=== PATIENT | female | born 1960 | race Caucasian/White ===

== ENCOUNTER 2018-07-16 07:25 | Inpatient (IN) ==
[2018-07-16] MEDS ORDERED: ANCEF 1 GRAM IV PREMIX* 2 G/100 ML BAG IV ONE (07:40)
[2018-07-16] MEDS ORDERED: D5 LR 1000 ML 1,000 ML IV ONE (07:40)
[2018-07-16 07:56] VITALS: BMI 38.3
[2018-07-16] MEDS ORDERED: FENTANYL INJ 100 mcg ONE (08:18)
[2018-07-16] MEDS ORDERED: DILAUDID INJ ONE ×4 (08:18→11:28)
[2018-07-16] MEDS ORDERED: BACITRACIN IR ONE ×2 (08:30)
[2018-07-16] MEDS ORDERED: NS IRRIGATION IR ONE ×2 (08:30)
[2018-07-16] MEDS ORDERED: NS IRRIGATION 1000 ML 1,000 ML with BACITRACIN VIAL 50,000 UNIT IR ONE ×2 (08:30)
[2018-07-16] MEDS: DILAUDID INJ IVP PRN ×4 (10:48→11:25)
[2018-07-16] MEDS ORDERED: ZOFRAN INJ 4 MG VIAL IVP PRN (10:50)
[2018-07-16] MEDS ORDERED: REGLAN INJ 10 MG VIAL IVP PRN (10:50)
[2018-07-16] MEDS ORDERED: BENADRYL INJ 50 MG VIAL IVP PRN (10:50)
[2018-07-16] MEDS ORDERED: PHENERGAN INJ 25 MG IVP PRN (10:50)
[2018-07-16] MEDS ORDERED: MORPHINE SULFATE PCA 30 MG IV PRN (11:09)
[2018-07-16] MEDS ORDERED: PHENERGAN INJ 25 MG ONE (11:10)
[2018-07-16] MEDS ORDERED: TORADOL 30 MG VIAL ONE (13:01)
[2018-07-16] MEDS ORDERED: ULTANE GAS IN ONE (13:01)
[2018-07-16] MEDS ORDERED: DIPRIVAN VIAL ONE (13:01)
[2018-07-16] MEDS ORDERED: VERSED ONE (13:01)
[2018-07-16] MEDS: D5 LR 1000 ML 1,000 ML IV SCH (13:42)
[2018-07-16] MEDS: MORPHINE SULFATE PCA 30 MG IVP PRN ×2 (13:42→23:30)
[2018-07-16] MEDS ORDERED: PROVENTIL NEB TX 0.083% 2.5MG/ 3ML NEB PRN (14:37)
[2018-07-16] MEDS ORDERED: VANCOMYCIN HCL 1 GM VIAL 1 G in D5W 250 ML IV 250 ML IV SCH (21:00)
[2018-07-16] MEDS: VANCOMYCIN HCL 1 GM VIAL 1 G in D5W 250 ML IV 250 ML IV SCH (21:12)
[2018-07-17] MEDS: D5 LR 1000 ML 1,000 ML IV SCH ×3 (02:13→16:21)
[2018-07-17 05:21] LABS: BLOOD UREA NITROGEN 18 mg/dL (7-18); CALCIUM 8.1 mg/dL (8.5-10.1); CARBON DIOXIDE 24.7 mmol/L (21-32); CHLORIDE 106 mmol/L (98-107); COR NA(FOR HYPERGLY) 140 mmol/L (136-145); SODIUM 139 mmol/L (136-145); eGFR NON BLACK RACES > 60 (>60)
[2018-07-17 05:29] LABS: BASOPHILS % (AUTO) 0.3 % (0.2-1.0); EOSINOPHILS # (AUTO) 0.1 x10^3/uL (0.0-0.2); EOSINOPHILS % (AUTO) 1.1 % (0.9-2.9); HEMATOCRIT 41.7 % (36.0-47.0); HEMOGLOBIN 13.9 g/dL (12.0-16.0); LYMPHOCYTES # (AUTO) 1.2 X10^3/uL (1.3-2.9); LYMPHOCYTES % (AUTO) 12.2 % (21.0-51.0); MEAN CORPUSCULAR HEMOGLOBIN 29.3 pg (27.0-34.0); MEAN CORPUSCULAR HGB CONC 33.4 g/dL (33.0-35.0); MEAN CORPUSCULAR VOLUME 87.7 fL (80.0-100.0); MEAN PLATELET VOLUME 7.6 fL (7.4-11.0); MONOCYTES # (AUTO) 0.7 x10^3/uL (0.3-0.8); MONOCYTES % (AUTO) 7.5 % (0.0-13.0); NEUTROPHILS # (AUTO) 7.9 x10^3/uL (2.2-4.8); NEUTROPHILS % (AUTO) 78.9 % (42.0-75.0); PLATELET COUNT 289 X10^3/uL (150.0-450.0); RED BLOOD COUNT 4.76 X10^6/uL (3.5-5.4); RED CELL DISTRIBUTION WIDTH 14.6 % (11.6-16.5)
[2018-07-17] MEDS: VANCOMYCIN HCL 1 GM VIAL 1 G in D5W 250 ML IV 250 ML IV SCH ×2 (08:20→21:44)
[2018-07-17] MEDS ORDERED: LOVENOX INJ 30 MG SYR SC SCH ×2 (09:00)
[2018-07-17] MEDS: MORPHINE SULFATE PCA 30 MG IVP PRN (10:45)
[2018-07-17] MEDS ORDERED: MORPHINE SULFATE INJ 2 MG INJ IVP PRN (13:05)
[2018-07-17] MEDS ORDERED: PROVENTIL NEB TX 0.083% 2.5MG/ 3ML NEB PRN (13:59)
[2018-07-17] MEDS ORDERED: ZOFRAN INJ 4 MG VIAL IVP PRN (14:22)
[2018-07-17] MEDS ORDERED: IMITREX TAB PO PRN (15:10)
[2018-07-17] MEDS: NORCO 10/325 TAB PO PRN ×2 (15:28→21:45)
[2018-07-17] MEDS: PHENERGAN TAB 25 MG PO PRN ×2 (15:28→21:45)
[2018-07-18] MEDS: D5 LR 1000 ML 1,000 ML IV SCH ×2 (00:28→11:49)
[2018-07-18] MEDS: NORCO 10/325 TAB PO PRN (04:14)
[2018-07-18 05:18] LABS: BASOPHILS % (AUTO) 0.4 % (0.2-1.0); EOSINOPHILS # (AUTO) 0.2 x10^3/uL (0.0-0.2); EOSINOPHILS % (AUTO) 2.1 % (0.9-2.9); HEMATOCRIT 42.3 % (36.0-47.0); HEMOGLOBIN 14.4 g/dL (12.0-16.0); LYMPHOCYTES # (AUTO) 3.2 X10^3/uL (1.3-2.9); LYMPHOCYTES % (AUTO) 29.5 % (21.0-51.0); MEAN CORPUSCULAR HEMOGLOBIN 29.6 pg (27.0-34.0); MEAN CORPUSCULAR VOLUME 86.9 fL (80.0-100.0); MEAN PLATELET VOLUME 7.6 fL (7.4-11.0); MONOCYTES # (AUTO) 0.7 x10^3/uL (0.3-0.8); MONOCYTES % (AUTO) 6.4 % (0.0-13.0); NEUTROPHILS # (AUTO) 6.6 x10^3/uL (2.2-4.8); NEUTROPHILS % (AUTO) 61.6 % (42.0-75.0); PLATELET COUNT 333 X10^3/uL (150.0-450.0); RED BLOOD COUNT 4.86 X10^6/uL (3.5-5.4); RED CELL DISTRIBUTION WIDTH 14.2 % (11.6-16.5); WHITE BLOOD COUNT 10.8 X10^3/uL (3.6-10.0)
[2018-07-18 05:19] LABS: BLOOD UREA NITROGEN 11 mg/dL (7-18); CALCIUM 8.8 mg/dL (8.5-10.1); CHLORIDE 105 mmol/L (98-107); CREATININE 0.84 mg/dL (0.55-1.02); SODIUM 141 mmol/L (136-145); eGFR NON BLACK RACES > 60 (>60)
[2018-07-18] MEDS ORDERED: POTASSIUM CHLORIDE LIQ 20 MEQ UDC PO PRN (06:05)
[2018-07-18] MEDS ORDERED: MAGNESIUM SULFATE 1 GRAM/100 mL PREMIX 1 GM/100 ML BAG IV PRN (06:05)
[2018-07-18] MEDS ORDERED: K-RIDER 10 MEQ/NS 100 ML 10 MEQ/100 ML BAG IV PRN (06:05)
[2018-07-18] MEDS ORDERED: K-DUR TAB 20 MEQ PO PRN (06:05)
[2018-07-18] MEDS ORDERED: MICRO K EXTEN CAP 10 MEQ PO PRN (06:05)
[2018-07-18] MEDS ORDERED: KLOR-CON PO PRN (06:05)
[2018-07-18] MEDS ORDERED: POTASSIUM CHL 40 MEQ/NS 0.45% 500 ML IV PRN (06:05)
[2018-07-18] MEDS ORDERED: POTASSIUM CHL 60 MEQ/NS 0.45% 500 ML IV PRN (06:05)
[2018-07-18 08:40] LABS: CREATININE 0.91 mg/dL (0.55-1.02); VANCOMYCIN,TROUGH 12.3 ug/mL (15-20)
[2018-07-18] MEDS ORDERED: LOVENOX INJ 30 MG SYR SC SCH (09:00)
[2018-07-18] MEDS: VANCOMYCIN HCL 1 GM VIAL 1 G in D5W 250 ML IV 250 ML IV SCH (09:39)
[2018-07-18 12:44] VITALS: BP 133/92
[2018-07-18] MEDS ORDERED: PROVENTIL NEB TX 0.083% 2.5MG/ 3ML NEB PRN (15:31)
--- NOTE | 2018-08-01 11:39 | OR.GENERIC ---
Post-Op Note Generic - Post-Op Note Operative Report: preoperative diagnosis-RIGHT knee patellar instability. Postoperative diagnosis-RIGHT knee patellar instability. Procedure-RIGHT knee lateral patellar release. Indication-patient 58-year-old female dealing with the subluxation and repeated dislocation of the RIGHT knee patella. 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 She noticed a having issues with her kneecap was subluxating laterally. Infection workup was negative. Patient was taken through the treatment options. Patient expressed an interest in proceeding with the RIGHT knee lateral patellar release. Also the possibility of medial plication. The skin benefitscussed with ing but not l neurovasculr damage, hemorrhage, infection,need for further procedures, fracture, dislocation. These were filled the complications which were discussed with the patient. Patient consented for the surgical procedure. Procedure-. Patient was seen in t preop holding area. Limb was marked. Patient got thegned. Limb was marked. Patient got up up to antibiotics. She was seen by the interchange agent. Patient was brought to the operating room. Patient was placed supine on the operating table. patient was placed under general anesthesia with endotracheal intubation. Tourniquet was applied. But inflated. The limb was prepped and draped. Tourniquet was inflated.incision placed over the old scar. The scar was excised. Dissection carried down through the subcutaneous tissue. Intraoperative findings were noted. Complete rupture of medial with discontinuity tear of quadriceps noted on the medial side. There was clear fluid noted inside the joint. Culture and sensitivity were obtained 2. Sent to the lab. There was some thick scar noted around the patellar tendon. The edges on the medial side showed that there was no continuity on the medial side. There is complete longitudinal rupture off the medial retinaculum. The quadriceps was also completely disrupted on the medial side. The edges were soft/smoothed. No signs of feeling was noted. With the flexion extension the patella subluxated/dislocated completely on the lateral side. The scar tissue was taken down. The edges of the quadriceps as well as the medial retinaculum was freshened to bleeding surface. The scar around the patellar tendon was and around the patellar Was removed. The patellar component was tested for stability. The patellar component was found to be stable. The femoral component as well as the tibial component where tested for stability. No signs of loosening was noted. The polyethylene was intact and did not show any signs of wear and tear. There was limited translation of the the patella indicating the tight lateral structures. Lateral release was completed. Double press testing of 4 the medial structures was done using Ethibond. Double breastingwas tested There was normal tracking off for but not this time. Thorough irrigation was done. The rest of the wound was closed in layers. Drain was placed. Tourniquet was deflated. Sterile dressing was applied. Patient awoken up the surgery. Patient was placed in a knee immobilizer. Patient was shifted to PACU in stable condition. Patient will be admitted for pain control. Patient is allowed weightbng as tolerated. restricted from ranging any knee at this time. After 3-4 weeks we will decide on ranging her knee. Postoperative x-rays were obtained. Postoperative instructions were given. Family was updated about the procedure and findings.
--- NOTE | 2018-08-02 10:31 | PCM.PROG ---
Progress Note - Progress Note for Day of Date of Exam: 07/17/18 - Subjective Subjective: IS DAY 1 STATUS POST RIGHT KNEE LATERAL RELEASE. TODAY, SHE IS ALERT AND ORIENTED, LYING IN BED ON MORNING ROUNDS. SHE IS NOTED WITH COMPLAINTS OF MILD RIGHT KNEE PAIN. SHE IS NOTED WITH A HEMOVAC DRAIN TO THE RIGHT LEG WITH A SMALL AMOUNT OF DRAINAGE. THERE IS ALSO A KNEE IMMOBILIZER NOTED TO RIGHT KNEE. NO SIGNS OR SX INFECTION NOTED TO SITE. HER VITALS THIS MORNING ARE 98.9-70-20-99%-132/80. SHE IS HEMODYNAMICALLY STABLE TODAY. WOUND CULTURES ARE PENDING. SHE IS CURRENTLY RECEIVNG PROPHYLACTIC ANTIBIOTICS AND PAIN MEDICATION VIA GERIATRICS PHYSICIAN. WE WILL CONTINUE WITH CURRENT PLAN OF CARE TODAY. SHE WILL RECEIVE PHYSICAL THERAPY TODAY. WILL CONTINUE TO MONITOR PATIENT. OTHERWISE, WE WILL FOLLOW UP WITH AM LABS AND CONTINUE TO MONITOR PATIENT. - Past Medical Family Social History Past Med/Fam/Surg Hx: No changes since H&P Allergies: Allergies clarithromycin Allergy (Verified 07/16/18 07:39) metronidazole [From Flagyl] Allergy (Verified 07/16/18 07:39) - Review of Systems ROS: No change since H&P - Vital Signs and I&O's Vital Signs: Temperature 98.5 F Pulse Rate [Right Brachial] 76 Pulse Rate 78 Respiratory Rate 20 Blood Pressure [Right Arm] 133/92 Blood Pressure 168/94 O2 Sat by Pulse Oximetry 99 - Physical Exam Oriented: Normal Eyes: Normal Ear: Normal Nose: Normal Throat: Normal Respiratory: Normal Cardiovascular: Normal : Normal Auscultation: Bowel Sounds: Normal Palpation: Normal Tenderness: Normal Skin: Wound (RIGHT KNEE SURGICAL WOUND ) Musculoskeletal: Right, Knee, Tender Psychiatric: Normal Mood Description: Calm, Appropriate Affect: Normal Speech Pattern: Clear, Appropriate - Laboratory and Diagnostics Result Diagrams: 07/18/18 04:12 07/18/18 08:18 Labs: 07/15/18 09:15 Knee - Right Gram Stain - Final 07/15/18 09:15 Knee - Right Wound Culture - Final 07/16/18 09:22 Knee - Right Gram Stain - Final 07/16/18 09:22 Knee - Right Wound Culture - Final Laboratory WBC 10.8 X10^3/uL (3.6-10.0) H 07/18/18 04:12 RBC 4.86 X10^6/uL (3.5-5.4) 07/18/18 04:12 Hgb 14.4 g/dL (12.0-16.0) 07/18/18 04:12 Hct 42.3 % (36.0-47.0) 07/18/18 04:12 MCV 86.9 fL (80.0-100.0) 07/18/18 04:12 MCH 29.6 pg (27.0-34.0) 07/18/18 04:12 MCHC 34.0 g/dL (33.0-35.0) 07/18/18 04:12 RDW 14.2 % (11.6-16.5) 07/18/18 04:12 Plt Count 333 X10^3/uL (150.0-450.0) 07/18/18 04:12 MPV 7.6 fL (7.4-11.0) 07/18/18 04:12 Neut % (Auto) 61.6 % (42.0-75.0) 07/18/18 04:12 Lymph % (Auto) 29.5 % (21.0-51.0) 07/18/18 04:12 [place] % (Auto) 6.4 % (0.0-13.0) 07/18/18 04:12 Eos % (Auto) 2.1 % (0.9-2.9) 07/18/18 04:12 Baso % (Auto) 0.4 % (0.2-1.0) 07/18/18 04:12 Neut # (Auto) 6.6 x10^3/uL (2.2-4.8) H 07/18/18 04:12 Lymph # (Auto) 3.2 X10^3/uL (1.3-2.9) H 07/18/18 04:12 [place] # (Auto) 0.7 x10^3/uL (0.3-0.8) 07/18/18 04:12 Eos # (Auto) 0.2 x10^3/uL (0.0-0.2) 07/18/18 04:12 Baso # (Auto) 0.0 X10^3/uL (0.0-0.1) 07/18/18 04:12 Absolute Nucleated RBC 0.0 /100WBC 07/18/18 04:12 Sodium 141 mmol/L (136-145) 07/18/18 04:12 Corrected Sodium TNP 07/18/18 04:12 Potassium 3.7 mmol/L (3.5-5.1) 07/18/18 04:12 Chloride 105 mmol/L (98-107) 07/18/18 04:12 Carbon Dioxide 25.0 mmol/L (21-32) 07/18/18 04:12 BUN 11 mg/dL (7-18) 07/18/18 04:12 Creatinine 0.91 mg/dL (0.55-1.02) 07/18/18 08:18 Est GFR (MDRD) Af Amer > 60 (>60) 07/18/18 04:12 Est GFR (MDRD) Non-Af > 60 (>60) 07/18/18 04:12 Glucose 101 mg/dL (65-99) H 07/18/18 04:12 Calcium 8.8 mg/dL (8.5-10.1) 07/18/18 04:12 Magnesium 2.0 mg/dL (1.7-2.9) 07/18/18 04:12 Vancomycin Trough 12.3 ug/mL (15-20) L 07/18/18 08:18
--- NOTE | 2018-08-20 03:04 | DR.CARTERD ---
- Discharge Summary for: Discharge Summary for Date of:: 07/18/18 - Admission Date Date of Admission: 07/16/18 - Admission Diagnoses Admission Diagnosis: (1) STATUS POST 1 DAY RIGHT KNEE LATERAL RELEASE - Discharge Date Discharge Date: 07/18/18 - Discharge Diagnoses Discharge Diagnosis: (1) STATUS POST 1 DAY RIGHT KNEE LATERAL RELEASE - Hospital Course Hospital Course: DAY ONE, PATIENT ADMITTED TO THE HOSPITAL FOR STATUS POST RIGHT LATERAL KNEE RELEASE PERFORMED BY DR. GUTHRIE. WE CONTINUED TO MONITOR. DAY TWO, IS DAY 1 STATUS POST RIGHT KNEE LATERAL RELEASE. TODAY, SHE WAS ALERT AND ORIENTED, LYING IN BED ON MORNING ROUNDS. SHE WAS NOTED WITH COMPLAINTS OF MILD RIGHT KNEE PAIN. SHE WAS NOTED WITH A HEMOVAC DRAIN TO THE RIGHT LEG WITH A SMALL AMOUNT OF DRAINAGE. THERE WAS ALSO A KNEE IMMOBILIZER NOTED TO RIGHT KNEE. NO SIGNS OR SX INFECTION NOTED TO SITE. HER VITALS THIS MORNING WERE 98.9-70-20-99%-132/80. SHE WAS HEMODYNAMICALLY STABLE TODAY. WOUND CULTURES WERE PENDING. SHE WAS CURRENTLY RECEIVNG PROPHYLACTIC ANTIBIOTICS AND PAIN MEDICATION VIA SHOE PACKER. WE CONTINUED WITH CURRENT PLAN OF CARE TODAY. SHE RECEIVED PHYSICAL THERAPY TODAY. CONTINUED TO MONITOR PATIENT. WE FOLLOWED UP WITH AM LABS AND CONTINUED TO MONITOR PATIENT. DAY THREE, HEMOVAC WAS DISCONTINUED TODAY. DR. GUTHRIE RELEASED PATIENT FOR DISCHARGE. VITALS WERE STABLE. LABS WERE WITHIN NORMAL LIMITS. BLOOD CULTURES SHOWED NO GROWTH AT THIS TIME.CASE MANAGEMENT HAS SET PATIENT UP WITH [facility] FOR [facility]LLOW UP CARE AND THERAPY. WE PLANNED FOR DISCHARGE. INSTRUCTIONS FOR MEDICATIONS AND FOLLOW UP WERE DISCUSSED WITH PATIENT AND FAMILY, BOTH VOICED UNDERSTANDING. PATIENT DISCHARGED HOME IN STABLE CONDITION WITH FAMILY. - Discharge Medications Discharge Medications: Home Medication List amlodipine 10 mg PO DAILY 07/17/18 [History] atenolol 25 mg PO DAILY 07/17/18 [History] cetirizine 10 mg PO DAILY 07/17/18 [History] clonazepam 0.5 mg PO BID 07/17/18 [History] levothyroxine 75 mcg PO DAILY 07/17/18 [History] pantoprazole 40 mg PO DAILY 07/17/18 [History] sertraline 1.5 tab PO DAILY 07/17/18 [History] simvastatin 20 mg PO HS 07/17/18 [History] sumatriptan succinate 100 mg PO BID PRN 07/17/18 [History] tizanidine 4 mg PO BID PRN 07/17/18 [History] topiramate 100 mg PO BID 07/17/18 [History] Prescriptions: - Discharge Disposition Discharge Disposition: PATIENT TO FOLLOW UP WITH JERRI PHILLIPS IN ONE WEEK.
== END 2018-07-18 14:30 | disposition home health service (06) | DRG 502 ==
LOC: MED/SURG 07:25
PROVIDERS: ADMIT Internal Medicine; ATTEND Internal Medicine
DX: M25.561 Pain in right knee; M22.01 Recurrent dislocation of patella, right knee
CPT/HCPCS: 36415; 80048; 80202; 82565; 83735; 85025; 87070; 87075; 87205; 94760; 97110; 97116; 97163; 97167; 97530; A4222; Q0169; J0690; J1170; J1650; J1885; J2250; J2271; J2550; J2704; J3010; J3370; J7060; J7121